=== PATIENT | female | born 1965 | race American Indian/Alaskan Native ===

== ENCOUNTER 2017-12-07 05:10 | Emergency (ER) | payer OTHER ==
[~2017-12-07] VITALS: Ht 162.6 cm; Wt 93.2 kg
[2017-12-07 05:18] VITALS: BP 141/78
--- NOTE | 2017-12-07 05:23 | NUR ---
PATIENT AMBULATED TO BED 12
--- NOTE | 2017-12-07 05:25 | NUR ---
52/F CAME IN W C/O 03/03 RT EYE PAIN, RADIATING TO FACIAL AND NECK X YESTERDAY. PT DENIES BLURRY VISION/FLOATERS,PHOTOSENSITIVITY,DENIES TRAUMA/INJURY, DENIES N/V. PMH: HTN, DM, HLD
--- NOTE | 2017-12-07 06:46 | NUR ---
Patient appears to be resting comfortably in bed. Vital Signs within normal limits. Respirations even and unlabored.
[2017-12-07] MEDS ORDERED: TETRACAINE HCL/PF 0.5% OPTH 4 ML BTL OP ONE (07:05)
[2017-12-07] MEDS ORDERED: FLUORESCEIN OPTH STRIP 0.6 MG OP ONE (07:05)
--- NOTE | 2017-12-07 07:18 | NUR ---
RECEIVED REPORT FROM JOE DE LOS SANTOS.
--- NOTE | 2017-12-07 07:18 | NUR ---
Pt report given to SATYA DIAZ. Transfer of care at this time.
--- NOTE | 2017-12-07 07:20 | NUR ---
RECIEVED REPORT FROM JOE DE LOS SANTOS.
[2017-12-07] MEDS ORDERED: KETOROLAC 30 MG/ML VIAL IM ONE (07:30)
[2017-12-07 08:52] VITALS: BP 125/83
--- NOTE | 2017-12-07 08:52 | NUR ---
Patient discharged with v/s stable. Written and verbal after care instructions given and explained. Patient verbalized understanding. Ambulatory with steady gait. All questions addressed prior to discharge. Advised to follow up with PMD. PT FAUSTO WITHOUT PAPER. Addendum: [facility]07[facility]17 [facility] NOT SIGAlona LAMBERT PAPER
== END 2017-12-07 08:52 | disposition home or self-care (01) ==
LOC: MED 05:10
DX: G44.009 Cluster headache syndrome, unspecified, not intractable (principal); F43.9 Reaction to severe stress, unspecified; I10 Essential (primary) hypertension; E11.9 Type 2 diabetes mellitus without complications
CPT/HCPCS: 82948; 96372; 99283; J1885

== ENCOUNTER 2018-04-04 16:49 | Inpatient (IN) | payer OTHER ==
[~2018-04-04] VITALS: Ht 154.9 cm; Wt 91.7 kg
[2018-04-04 17:00] VITALS: BP 113/71
--- NOTE | 2018-04-04 17:10 | NUR ---
PATIENT AMBULATED TO BED 5.
--- NOTE | 2018-04-04 17:15 | NUR ---
Note stephanie in EDM - 04/04/18 at 1722 by [email or web address] 53/F BIB DAUGHTER with c/o 10 "sharp" intermittent non provoked right sided chest pain radiating to bl upper back since 0 today. Patient also reports of dizziness, sob, and headache. Patient is aox4 with steady gait. Skin is warm/dry/color normal for ethnicity. Clear speech with full sentences. hx--dm, htm, hyperlipidemia .
--- NOTE | 2018-04-04 17:15 | NUR ---
53/F BIB DAUGHTER with c/o 7/10 "sharp" intermittent non provoked right sided chest pain radiating to bl upper back since 1430 today. Patient also C/O N/D and headache. Patient is aox4 with steady gait. Skin is warm/dry/color normal for ethnicity. Clear speech with full sentences. hx--dm, htm, hyperlipidemia .SKIN IS PINK/WARM/DRY; AAOX4 WITH EVEN AND STEADY GAIT; LUNGS CLEAR BL. PATIENT STATES PAIN OF 7/10 AT THIS TIME. PATIENT POSITIONED FOR COMFORT; HOB ELEVATED; BEDRAILS UP X2; BED DOWN. ER MD MADE AWARE OF PT STATUS.
[2018-04-04] MEDS ORDERED: ASPIRIN 325 MG TAB PO ONE (17:25)
[2018-04-04] MEDS ORDERED: MORPHINE SULFATE 2 MG/ML SYR IVP ONE (17:25)
[2018-04-04 18:03] LABS: BASOPHILS % (AUTO) 0.5 % (0.0-2.0); EOSINOPHILS # (AUTO) 0.2 K/uL (0-0.4); EOSINOPHILS % (AUTO) 2.8 % (0.0-4.0); HEMATOCRIT 39.7 % (36-48); HEMOGLOBIN 13.4 g/dL (12.0-16.0); LYMPHOCYTES # (AUTO) 2.1 K/uL (2.5-16.5); LYMPHOCYTES % (AUTO) 29.1 % (20.5-51.1); MEAN CORPUSCULAR HEMOGLOBIN 31 pg (27-31); MEAN CORPUSCULAR HGB CONC 34 g/dL (33-37); MEAN CORPUSCULAR VOLUME 92.2 fL (80-94); MONOCYTES # (AUTO) 0.5 K/uL (0.8-1.0); NEUTROPHILS # (AUTO) 4.3 K/uL (1.8-7.7); NEUTROPHILS % (AUTO) 60.6 % (42.2-75.2); PLATELET COUNT (AUTO) 291 K/uL (140-450); RED BLOOD CELL COUNT(AUTO) 4.31 MIL/uL (4.20-5.40); RED CELL DISTRIBUTION WIDTH 12.3 % (11.6-13.7); WHITE BLOOD COUNT (AUTO) 7.2 K/uL (4.8-10.8)
[2018-04-04] MEDS ORDERED: KETOROLAC 30 MG/ML VIAL ONE (18:08)
[2018-04-04] MEDS ORDERED: KETOROLAC 30 MG/ML VIAL IVP ONE (18:15)
--- NOTE | 2018-04-04 18:16 | NUR ---
cxr completed at bedside
[2018-04-04 18:18] LABS: CARBON DIOXIDE 24.6 mmol/L (21-32); CREATININE 0.7 mg/dL (0.6-1.3); POTASSIUM 3.6 mmol/L (3.5-5.1); TOTAL BILIRUBIN 0.6 mg/dL (0.0-1.0)
[2018-04-04 18:22] LABS: PROTHROMBIN TIME 10.2 secs (10.8-13.4)
[2018-04-04 18:27] LABS: D-DIMER < 100 ng/ml (0-400)
[2018-04-04 18:44] LABS: CREATINE KINASE MB 2.1 ng/mL (0-3.6)
[2018-04-04] MEDS ORDERED: MORPHINE SULFATE 2 MG/ML SYR IVP PRN (19:10)
[2018-04-04] MEDS ORDERED: HYDROcodone/APAP 5/325 MG 1 TAB TAB PO PRN (19:10)
[2018-04-04] MEDS ORDERED: ACETAMINOPHEN 325 MG TAB PO PRN (19:10)
[2018-04-04] MEDS ORDERED: NITROGLYCERIN 0.4 MG TAB SL PRN (19:10)
[2018-04-04] MEDS ORDERED: INSULIN LISPRO SLIDING SCALE 100 UNITS/ML VIAL SUBQ PRN (19:10)
[2018-04-04] MEDS ORDERED: ONDANSETRON 4 MG/2 ML VIAL IVP PRN (19:10)
[2018-04-04] MEDS ORDERED: DEXTROSE 50% 50 ML SYR IVP PRN (19:10)
[2018-04-04] MEDS ORDERED: LORazepam 2 MG/ML VIAL IVP PRN (19:10)
--- NOTE | 2018-04-04 19:10 | NUR ---
Pt report given to FILIBERTO DIAZ. Transfer of care at this time.
--- NOTE | 2018-04-04 19:45 | NUR ---
ADMITTED PATIENT TO THE TELE UNIT, PATIENT AWAKE ALERT ORIENTED X4, NO S/S OF DISTRESS NOTED, RESPIRATION EVEN AND UNLABORED, ON ROOM AIR. TELE MONITOR PLACED ON PATIENT, IV PATENT AND INTACT. PLAN OF CARE DISCUSSED, PATIENT VERBALIZED UNDERSTANDING, CALL LIGHT WITHIN REACH, SAFETY MEASURE ENSURED, WILL CONTINUE TO MONITOR.
[2018-04-04 20:00] VITALS: BP 146/77
[2018-04-04] MEDS: METOPROLOL 25 MG TAB PO SCH (20:48)
[2018-04-04] MEDS: SIMVASTATIN 20 MG TAB PO SCH (20:48)
[2018-04-04] MEDS: BLOOD GLUCOSE MONITORING 1 DEV DEV FS SCH (20:48)
--- NOTE | 2018-04-04 20:50 | NUR ---
DUE MEDICATION GIVEN, PATIENT TOLERATED WELL. NO S/S OF DISTRESS NOTED, RESPIRATION EVEN AND UNLABORED, ON ROOM AIR. CALL LIGHT WITHIN REACH, SAFETY MEASURE ENSURED, WILL CONTINUE TO MONITOR.
--- NOTE | 2018-04-04 21:14 | NUR ---
OFFERED PATIENT SANDWICH PATIENT REQUESTED, NO S/S OF DISTRESS NOTED, CALL LIGHT WITHIN REACH, SAFETY MEASURE ENSURED, WILL CONTINUE TO MONITOR.
--- NOTE | 2018-04-04 23:54 | NUR ---
VITAL SIGNS STABLE, NO S/S OF DISTRESS NOTED, RESPIRATION EVEN AND UNLABORED, CALL LIGHT WITHIN REACH, SAFETY MEASURE ENSURED, WILL CONTINUE TO MONITOR.
[2018-04-04 23:55] VITALS: BP 112/57
[2018-04-05 02:14] LABS: CREATINE KINASE MB 1.8 ng/mL (0-3.6)
--- NOTE | 2018-04-05 02:50 | NUR ---
PATIENT IS SLEEPING, NO S/S OF DISTRESS NOTED, RESPIRATION EVEN AND UNLABORED, CALL LIGHT WITHIN REACH, SAFETY MEASURE ENSURED, WILL CONTINUE TO MONITOR.
[2018-04-05 04:00] VITALS: BP 114/65
--- NOTE | 2018-04-05 04:13 | NUR ---
VITAL SIGNS STABLE, NO S/S OF DISTRESS NOTED, RESPIRATION EVEN AND UNLABORED, CALL LIGHT WITHIN REACH, SAFETY MEASURE ENSURED, WILL CONTINUE TO MONITOR.
[2018-04-05 06:40] LABS: BASOPHILS % (AUTO) 0.6 % (0.0-2.0); EOSINOPHILS # (AUTO) 0.2 K/uL (0-0.4); EOSINOPHILS % (AUTO) 2.8 % (0.0-4.0); HEMATOCRIT 37.9 % (36-48); HEMOGLOBIN 12.9 g/dL (12.0-16.0); LYMPHOCYTES # (AUTO) 2.2 K/uL (2.5-16.5); LYMPHOCYTES % (AUTO) 29.9 % (20.5-51.1); MEAN CORPUSCULAR HEMOGLOBIN 32 pg (27-31); MEAN CORPUSCULAR HGB CONC 34 g/dL (33-37); MEAN CORPUSCULAR VOLUME 92.8 fL (80-94); MONOCYTES # (AUTO) 0.5 K/uL (0.8-1.0); MONOCYTES % (AUTO) 6.8 % (1.7-9.3); NEUTROPHILS # (AUTO) 4.4 K/uL (1.8-7.7); NEUTROPHILS % (AUTO) 59.9 % (42.2-75.2); PLATELET COUNT (AUTO) 250 K/uL (140-450); RED BLOOD CELL COUNT(AUTO) 4.09 MIL/uL (4.20-5.40); RED CELL DISTRIBUTION WIDTH 12.6 % (11.6-13.7); WHITE BLOOD COUNT (AUTO) 7.4 K/uL (4.8-10.8)
[2018-04-05] MEDS: BLOOD GLUCOSE MONITORING 1 DEV DEV FS SCH ×4 (06:53→20:53)
[2018-04-05 07:05] LABS: ANION GAP 13.4 (8-16); CARBON DIOXIDE 25.3 mmol/L (21-32); CREATININE 0.7 mg/dL (0.6-1.3); POTASSIUM 3.7 mmol/L (3.5-5.1)
--- NOTE | 2018-04-05 07:14 | NUR ---
ENDORSED PLAN OF CARE TO DAY SHIFT RN, PATIENT IS IN STABLE CONDITION.
--- NOTE | 2018-04-05 07:20 | NUR ---
RECEIVED PT FROM CORN DETASSELER NURSE, MATT, PT IS AWAKE WITH AN IV LINE ON RT HAND G. 22 IN SALINE LOCK, SIDE RAILS ARE UP AND CALL LIGHT WITHIN REACH. NO SIGN OF DISTRESS NOTED AND WILL MONITOR.
--- NOTE | 2018-04-05 07:50 | NUR ---
PT IS AWAKE AND IS SEATED ON THE BED, VITAL SIGNS TAKEN AND IS STABLE. NO SIGN OF DISTRESS NOTED AND WILL CONTINUE TO MONITOR.
[2018-04-05 08:00] VITALS: BP 135/81
[2018-04-05] MEDS: METOPROLOL 25 MG TAB PO SCH ×2 (08:34→20:53)
[2018-04-05] MEDS: ASPIRIN 81 MG TAB.CHEW PO SCH (08:34)
[2018-04-05] MEDS: ENOXAPARIN 40 MG/0.4 ML SYR SUBQ SCH (08:42)
--- NOTE | 2018-04-05 08:45 | NUR ---
PT IS AWAKE AND SEATED ON THE BED, MEDICATIONS GIVEN AND PT TOLERATED IT. CALL LIGHT WITHIN REACH. NO SIGN OF DISTRESS NOTED AND WILL CONTINUE TO MONITOR.
--- NOTE | 2018-04-05 08:58 | NUR ---
PATIENT HAS BEEN SCREENED AND CATEGORIZED MODERATE NUTRITION RISK. PATIENT WILL BE SEEN WITHIN 3-5 DAYS OF ADMISSION. 04/07/18 04/09/[address]
[2018-04-05 10:59] LABS: CHOL/HDL RATIO 3.4 (1-4.5)
[2018-04-05 11:07] LABS: CREATINE KINASE MB 1.3 ng/mL (0-3.6)
--- NOTE | 2018-04-05 11:40 | NUR ---
PT IS AWAKE NAD SEATED ON THE CHAIR, BLOOD GLUCOSE CHECK DONE AND RESULT IS 142, NO INSULIN GIVEN.O SIGN OF DISTRESS NOTED. WILL MONITOR.
[2018-04-05 12:00] VITALS: BP 136/70
--- NOTE | 2018-04-05 12:30 | NUR ---
PT IS AWAKE AND VITAL SIGNS TAKEN AND IS STABLE. NO SIGN OF DISTRESS NOTED AND WILL MONITOR.
[2018-04-05 16:00] VITALS: BP 140/70
--- NOTE | 2018-04-05 16:40 | NUR ---
PT IS AWAKE AND SEATED ON THE CHAIR WITH SON ON THE BEDSIDE, BLOOD GLUCOSE CHECK DONE AND RESULT IS 103 AND NO INSULIN COVERAGE NEEDED. NO SIGN OF DISTRESS NOTED ON THE PT. WILL MONITOR.
--- NOTE | 2018-04-05 16:55 | NUR ---
FAXEDITIAL REVIEW TO [facility]
--- NOTE | 2018-04-05 16:56 | NUR ---
FAXED INITIAL REVIEW TO [facility] [phone] PHONE JUANA [phone]
--- NOTE | 2018-04-05 19:25 | NUR ---
ENDORSED PT TO CLAY SHOP SUPERVISOR NURSE, MATT, PT IS STABLE AT THIS TIME.
--- NOTE | 2018-04-05 19:35 | NUR ---
PATIENT AWAKE ALERT ORIENTED X4, NO S/S OF DISTRESS NOTED, RESPIRATION EVEN AND UNLABORED, ON ROOM AIR. TELE MONITOR PLACED ON PATIENT, IV PATENT AND INTACT. PLAN OF CARE DISCUSSED, PATIENT VERBALIZED UNDERSTANDING, CALL LIGHT WITHIN REACH, SAFETY MEASURE ENSURED, WILL CONTINUE TO MONITOR.
[2018-04-05 19:56] VITALS: BP 143/78
[2018-04-05] MEDS: SIMVASTATIN 20 MG TAB PO SCH (20:53)
--- NOTE | 2018-04-05 20:56 | NUR ---
DUE MEDICATION GIVEN, PATIENT TOLERATED WELL. NO S/S OF DISTRESS NOTED, RESPIRATION EVEN AND UNLABORED, CALL LIGHT WITHIN REACH, SAFETY MEASURE ENSURED, WILL CONTINUE TO MONITOR.
[2018-04-05] MEDS ORDERED: ALPRAZolam 0.5 MG TAB PO PRN (21:05)
--- NOTE | 2018-04-05 21:15 | NUR ---
PATIENT STATED," I USUALLY TAKE MEDICATION FOR ANXIETY AT HOME, BUT I DON'T REMEMBER THE NAME AND DOSE, CAN YOU ASK DOCTOR TO GIVE ME SOME MEDICATION FOR ANXIETY, AND CAN I ALSO GET THE LEG MACHINE FOR MY LEGS?" INFORMED DR. MCNEIL OF PATIENT'S REQUEST, RECEIVED ORDER OF XANAX 0.5MG PO PRN Q6H FOR ANXIETY, AND SEQUENTIAL COMPRESSION DEVICE. ORDER READ BACK, DR. MCNEIL CONFIRMED.
[2018-04-06] VITALS: BP 130/97
--- NOTE | 2018-04-06 00:08 | NUR ---
VITAL SIGNS STABLE. NO S/S OF DISTRESS NOTED, RESPIRATION EVEN AND UNLABORED, ON ROOM AIR. CALL LIGHT WITHIN REACH, SAFETY MEASURE ENSURED, WILL CONTINUE TO MONITOR.
--- NOTE | 2018-04-06 02:39 | NUR ---
PATIENT IS SLEEPING, NO S/S OF DISTRESS NOTED, RESPIRATION EVEN AND UNLABORED, ON ROOM AIR. CALL LIGHT WITHIN REACH, SAFETY MEASURE ENSURED, WILL CONTINUE TO MONITOR.
[2018-04-06 04:00] VITALS: BP 101/64
--- NOTE | 2018-04-06 04:08 | NUR ---
VITAL SIGNS STABLE. NO S/S OF DISTRESS NOTED, RESPIRATION EVEN AND UNLABORED, ON ROOM AIR. CALL LIGHT WITHIN REACH, SAFETY MEASURE ENSURED, WILL CONTINUE TO MONITOR.
[2018-04-06] MEDS: BLOOD GLUCOSE MONITORING 1 DEV DEV FS SCH (06:31)
[2018-04-06 06:51] LABS: BASOPHILS % (AUTO) 0.5 % (0.0-2.0); EOSINOPHILS # (AUTO) 0.2 K/uL (0-0.4); EOSINOPHILS % (AUTO) 3.2 % (0.0-4.0); HEMATOCRIT 38.6 % (36-48); LYMPHOCYTES # (AUTO) 1.8 K/uL (2.5-16.5); LYMPHOCYTES % (AUTO) 27.8 % (20.5-51.1); MEAN CORPUSCULAR HEMOGLOBIN 31 pg (27-31); MEAN CORPUSCULAR HGB CONC 34 g/dL (33-37); MEAN CORPUSCULAR VOLUME 92.5 fL (80-94); MONOCYTES # (AUTO) 0.5 K/uL (0.8-1.0); MONOCYTES % (AUTO) 6.9 % (1.7-9.3); NEUTROPHILS % (AUTO) 61.6 % (42.2-75.2); PLATELET COUNT (AUTO) 255 K/uL (140-450); RED BLOOD CELL COUNT(AUTO) 4.17 MIL/uL (4.20-5.40); RED CELL DISTRIBUTION WIDTH 12.6 % (11.6-13.7); WHITE BLOOD COUNT (AUTO) 6.6 K/uL (4.8-10.8)
--- NOTE | 2018-04-06 07:20 | NUR ---
ENDORSED PLAN OF CARE TO DAY SHIFT RN, PATIENT RESTING IN BED, IN STABLE CONDITION.
--- NOTE | 2018-04-06 07:21 | NUR ---
RECEIVED REPORT FROM CLIP LOADING MACHINE FEEDER NURSE AT BEDSIDE FOR CONTINUITY OF CARE. PT IS AAOX4. INTRODUCED SELF AND UPDATED BOARD. PT DENIES CHEST PAIN. NO SOB. VS: WNL. PT ASKED WHEN SHE WILL BE D/C. SAID WAITING FOR TO COME SHE HER FIRST. VERBALIZED UNDERSTANDING. CALL LIGHT WITHIN REACH. WILL CONTINUE TO MONITOR
[2018-04-06 07:25] LABS: CREATININE 0.6 mg/dL (0.6-1.3)
[2018-04-06 08:00] VITALS: BP 136/86
[2018-04-06] MEDS ORDERED: METF500T PO (09:06)
[2018-04-06] MEDS ORDERED: GEMF600T8 PO (09:06)
[2018-04-06] MEDS ORDERED: FOLI1TAB90 PO (09:06)
[2018-04-06] MEDS ORDERED: AMOX50TA PO (09:06)
[2018-04-06] MEDS ORDERED: ATOR10TA PO (09:06)
[2018-04-06] MEDS ORDERED: ATEN25TA7 PO (09:06)
[2018-04-06] MEDS ORDERED: VITD1000 PO (09:06)
[2018-04-06] MEDS ORDERED: METO25TA PO (09:47)
[2018-04-06] MEDS: METOPROLOL 25 MG TAB PO SCH (10:45)
[2018-04-06] MEDS: ASPIRIN 81 MG TAB.CHEW PO SCH (10:46)
[2018-04-06] MEDS: ENOXAPARIN 40 MG/0.4 ML SYR SUBQ SCH (10:48)
--- NOTE | 2018-04-06 11:26 | NUR ---
GAVE PT D/C FORMS, INSTRUCTIONS, FOLLOW UP APPOINTMENT, RX, AND LABS. PT VERBALIZED UNDERSTANDING AND SIGNED FORMS. D/C IV TO R HAND 22G. IV CATHETER TIP INTACT. APPLIED PRESSURE AND DRESSING TO SITE. NO BLEEDING NOTED. PT STATED SHE WILL EAT LUNCH FIRST AND IS WAITING FOR DAUGHTER TO PICK HER UP.
--- NOTE | 2018-04-06 12:00 | NUR ---
PT D/C TO GO HOME,LEFT WITH ALL PERSONAL BELONGINGS AND PACKET. LEFT IN STABLE CONDITION.
== END 2018-04-06 11:40 | disposition home or self-care (01) | DRG 203 ==
LOC: MED 16:49 → MTU 19:14
PROVIDERS: ADMIT Hospitalist; ATTEND Hospitalist
DX: R07.89 Other chest pain (principal); I10 Essential (primary) hypertension; I16.0 Hypertensive urgency; E11.9 Type 2 diabetes mellitus without complications; R61 Generalized hyperhidrosis; E66.9 Obesity, unspecified; E78.5 Hyperlipidemia, unspecified; Z68.38 Body mass index [BMI] 38.0-38.9, adult
CPT/HCPCS: 36415; 71045; 80048; 80053; 82550; 82553; 82948; 83036; 83880; 84484; 85025; 85379; 85610; 85730; 87081; 93005; 96374; 99285; J1650; J1815; J1885; Q0092